=== PATIENT | female | born 1985 | race Caucasian/White ===

== ENCOUNTER → 2018-02-19 10:21 | Outpatient (CLI) | payer OTHER, MEDICAID, SELFPAY ==
[2018-02-19 10:47] LABS: Add Manual Diff / Slide Review NO; Basophils Percent Auto 1.2 % (0-2); Eosinophils Percent Auto 2.2 % (2-4); Hematocrit 40.5 % (36-46); Hemoglobin 14.3 g/dL (12.0-16.0); Lymphocytes Percent Auto 23.4 % (25-40); Mean Corpuscular HGB Conc 35.3 % (30-36); Mean Corpuscular Hemoglobin 32.8 PG (26-34); Mean Corpuscular Volume 92.9 fL (80-100); Monocytes Percent Auto 6.2 % (3-14); Neutrophils Absolute Auto 4300 /uL (3000-5900); Platelet Count 312 X10^3/uL (150-400); Red Blood Cell Count 4.36 X10^6/uL (4.0-5.2); Red Cell Distribution Width 13.4 % (11.6-14.8); White Blood Cell Count 6.4 X10^3/uL (4.5-11.0)
[2018-02-19 11:18] LABS: Alanine Aminotransferase 24 IU/L (9-52); Albumin 4.3 g/dL (3.5-5.0); Albumin Globulin Ratio 1.3 (1.0-2.8); Alkaline Phosphatase 86 U/L (38-126); Aspartate Aminotransferase 26 IU/L (14-36); BUN Creatinine Ratio 14.3 (6-22); Bilirubin Total 0.3 mg/dL (0.2-1.3); Blood Urea Nitrogen 10 mg/dL (7-17); Calcium 9.3 mg/dL (8.4-10.2); Carbon Dioxide 32 mmol/L (22-32); Chloride 101 mmol/L (98-107); Cholesterol 155 mg/dL (140-199); Estimated Glomerular Filt Rate > 60.0 mL/min (>60); Globulin 3.3 g/dL (1.7-4.1); Glucose 81 mg/dL (70-100); HDL Cholesterol 73 mg/dL (40-60); HEMOLYSIS < 15 (0-50); LDL Cholesterol Calculated 70 mg/dL (<100); Potassium 4.1 mmol/L (3.4-5.1); Sodium 142 mmol/L (137-145); Total Protein 7.6 g/dL (6.3-8.2); Triglycerides 58 mg/dL (35-150)
[2018-02-19 11:19] LABS: Hemoglobin A1C% w Est Avg Glu 4.7 % (4.0-6.0)
[2018-02-19 11:46] LABS: Thyroid Stimulating Hormone 3.03 uIU/mL (0.47-4.68)
== END ==
PROVIDERS: Visit Provider Nurse Practitioner Family
DX: Z13.1 Encounter for screening for diabetes mellitus (principal); Z13.228 Encounter for screening for other metabolic disorders; Z83.49 Family history of other endocrine, nutritional and metabolic diseases; E03.9 Hypothyroidism, unspecified
CPT/HCPCS: 36415; 80053; 80061; 83036; 84443; 85025